=== PATIENT | male | born 1945 | race Caucasian/White ===

== ENCOUNTER 2018-06-01 11:30 | Day surgery (SDC) | payer BC ==
[~2018-06-01] VITALS: Ht 167.6 cm; Wt 59.5 kg
[~2018-06-01 11:30] MED LIST: LIDOCAINE 2% (SDV) 5 ML INJ ONE
[2018-06-01 12:19] VITALS: Ht 167.6 cm; Wt 59.5 kg
[2018-06-01] MEDS ORDERED: GABAPENTIN (12:23)
[2018-06-01] MEDS ORDERED: FIBER SUPPLEMENT (12:23)
[2018-06-01] MEDS ORDERED: ATORVASTATIN (12:23)
--- NOTE | 2018-06-01 12:51 | PREAC ---
Date/Time of Note Date/Time of Note DATE: 06/01/18 TIME: 12:50 Anesthesia Eval and Record Evaluation Time Pre-Procedure Interview DATE: 06/01/18 TIME: 12:50 Age 73 Sex male NPO: 8 hrs Preoperative diagnosis GERD, screening- Planned procedure EGD,colonoscopy Past Medical History Past Medical History: Includes Cardio: Dyslipidemia Neuro: Peripheral neuropathy Musculoskeletal: Osteoarthritis GI: GERD, Hiatal hernia Psych: Anxiety Surgery & Anesthesia Issues No known issue Meds Anticoagulation: No Beta Cecilia within 24 hr: No Reason Beta Cecilia not given: Pt. not on B-Cecilia Reported Medications [Atorvastatin] No Conflict Check 06/01/18 [Fiber Supplement] No Conflict Check 06/01/18 [Gabapentin] No Conflict Check 06/01/18 Meds reviewed: Yes Allergies Coded Allergies: No Known Allergy (Unverified , 06/01/18) Allergies Reviewed: Yes Labs/Studies Labs Reviewed: Reviewed by anesthesiologist test: N/A Studies: ECG, CXR Pre-procedure Exam Airway: Adequate mouth opening, Adequate thyromental dist Mallampati: Mallampati III Teeth: Normal Lung: Normal Heart: Normal ASA Physical Status ASA physical status: 3 Emergency: None Planned Anesthetic General/MAC: MAC Planned Pain Management Parenteral pain med Pre-operative Attestations Prior to commencing anesthesia and surgery, the patient was re-evaluated, there was verification of: *The patient's identity *The results of appropriate recent lab work and preoperative vital signs *The above evaluation not changing prior to induction *Anesthetic plan, risk benefits, alternative and complications discussed with patient/family; questions answered; patient/family understands, accepts and wishes to proceed. KATLYN ROOT MD Jun 01, 2018 12:51
[2018-06-01] MEDS ORDERED: PROPOFOL 60 ML ONE (12:56)
[2018-06-01 13:44] VITALS: BP 120/74; PULSE 66; RESP 12
--- NOTE | 2018-06-01 20:34 | PAC ---
Date/Time of Note Date/Time of Note DATE: 06/01/18 TIME: 20:34 Post-Anesthesia Notes Post-Anesthesia Note Last documented vital signs Vital Signs Date Temp Pulse Resp B/P (MAP) Pulse Ox O2 O2 Flow FiO2 Time Delivery Rate 06/01/18 66 12 120/74 96 Room Air 13:44 (89) Activity: WNL Respiratory function: WNL Cardiovascular function: WNL Mental status: Baseline Pain reasonably controlled: Yes Hydration appropriate: Yes Nausea/Vomiting absent: Yes KATLYN ROOT MD Jun 01, 2018 20:34
== END 2018-06-01 15:24 | disposition home or self-care (01) ==
LOC: GIL 11:30
PROVIDERS: ATTEND Internal Medicine Gastroenterology
DX: Z12.11 Encounter for screening for malignant neoplasm of colon (principal); K21.9 Gastro-esophageal reflux disease without esophagitis; K29.60 Other gastritis without bleeding
CPT/HCPCS: 43239; 45330; 88305; Z7610